=== PATIENT | female | born 1985 | race Caucasian/White ===

== ENCOUNTER 2019-04-10 09:30 | Inpatient (IN) | payer BC, OTHER ==
[~2019-04-10] VITALS: Ht 160 cm; Wt 86.2 kg
[~2019-04-10 09:30] MED LIST: CEFAZOLIN 2 GM IVPB PREMIX 50 ML IV ONE; LIDOCAINE 2%, 20 ML MDV INJ ONE; MIDAZOLAM HCL 5 MG/5 ML VIAL IVP ONE; NS IRRIG SOLN 1000 ML IR ONE
[2019-04-10] MEDS ORDERED: LR 1,000 ML IV SCH (09:56)
[2019-04-10] MEDS ORDERED: LR 1,000 ML IV ONE (09:56)
[2019-04-10] MEDS ORDERED: OXYTOCIN/0.9 % SODIUM CHLORIDE 1,000 ML IV SCH ×2 (09:56→14:25)
[2019-04-10] MEDS ORDERED: TERBUTALINE SULFATE 1 MG/ML VIAL SUBCUT ONE (10:00)
[2019-04-10] MEDS ORDERED: NALBUPHINE HCL 10 MG/ML AMP IVP PRN (10:00)
[2019-04-10 10:21] LABS: BASOPHILS # (AUTO) 0.1 K/uL (0.0-0.2); BASOPHILS % (AUTO) 0.5 % (0.0-2.0); EOSINOPHILS # (AUTO) 0.1 K/uL (0.0-0.4); EOSINOPHILS % (AUTO) 0.5 % (0.0-4.0); HEMATOCRIT 35.2 % (36-48); HEMOGLOBIN 11.7 g/dL (12.0-16.0); LYMPHOCYTES # (AUTO) 1.2 K/uL (1.0-5.5); MEAN CORPUSCULAR HEMOGLOBIN 32 pg (27-31); MEAN CORPUSCULAR HGB CONC 33 % (32-36); MEAN CORPUSCULAR VOLUME 97 fL (79.0-98.0); MONOCYTES # (AUTO) 0.8 K/uL (0.0-1.0); MONOCYTES % (AUTO) 8.2 % (1.7-9.3); NEUTROPHILS # (AUTO) 7.6 K/uL (1.8-7.7); NEUTROPHILS % (AUTO) 78.8 % (40.0-70.0); PLATELET COUNT (AUTO) 123 K/uL (130-430); RED BLOOD CELL COUNT(AUTO) 3.64 MIL/uL (4.2-6.2); RED CELL DISTRIBUTION WIDTH 14.3 % (9.0-15.0); WHITE BLOOD COUNT (AUTO) 9.7 K/uL (4.8-10.8)
[2019-04-10] MEDS ORDERED: fentaNYL CITRATE/PF 100 MCG/2 ML AMP ONE (10:58)
[2019-04-10] MEDS ORDERED: ROPIVACAINE HCL/PF 0.2% 200 ML ONE (10:59)
[2019-04-10] MEDS ORDERED: fentaNYL CITRATE/PF 100 MCG/2 ML AMP EP ONE (11:45)
[2019-04-10] MEDS ORDERED: FENT2mCg/mL-ROPIVA0.2%/NS EPID 200 ML EP SCH (11:45)
[2019-04-10] MEDS ORDERED: LR 500 ML IV ONE (11:45)
[2019-04-10] MEDS ORDERED: ePHEDrine sulfate 50 MG/ML VIAL IVP PRN (11:45)
[2019-04-10] MEDS ORDERED: ROPIVACAINE 40 MG/20 ML AMP EP ONE (13:29)
[2019-04-10] MEDS ORDERED: ePHEDrine sulfate 50 MG/ML VIAL IVP ONE (13:29)
[2019-04-10] MEDS ORDERED: OXYTOCIN 10 UNIT/ML VIAL ONE (14:08)
[2019-04-10] MEDS ORDERED: METHYLERGONOVINE MALEATE 0.2 MG/ML AMP ONE (14:09)
[2019-04-10] MEDS ORDERED: METHYLERGONOVINE MALEATE 0.2 MG/ML AMP IM ONE (14:09)
[2019-04-10] MEDS ORDERED: WITCH HAZEL LEAF 1 MED.PAD MED.PAD TP PRN (14:30)
[2019-04-10] MEDS ORDERED: SENNOSIDES/DOCUSATE SODIUM 1 TAB TABLET(SENOKOT-S) PO PRN (14:30)
[2019-04-10] MEDS ORDERED: DOCUSATE SODIUM 100 MG CAPSULE PO PRN (14:30)
[2019-04-10] MEDS ORDERED: DERMOPLAST SPRAY TP PRN (14:30)
[2019-04-10] MEDS ORDERED: IBUPROFEN 800 MG TABLET PO PRN (14:30)
[2019-04-10] MEDS ORDERED: LANOLIN 7 GM OINT. TP PRN (14:30)
[2019-04-10] MEDS: OXYCODONE/ACETAMINOPHEN 5-325 TABLET PO PRN (20:35)
[2019-04-10] MEDS ORDERED: TEMAZEPAM 15 MG CAPSULE PO PRN (21:00)
[2019-04-11] MEDS: OXYCODONE/ACETAMINOPHEN 5-325 TABLET PO PRN ×3 (02:48→17:28)
[2019-04-11 06:03] LABS: BASOPHILS % (AUTO) 0.4 % (0.0-2.0); EOSINOPHILS # (AUTO) 0.1 K/uL (0.0-0.4); EOSINOPHILS % (AUTO) 0.8 % (0.0-4.0); HEMATOCRIT 28.5 % (36-48); HEMOGLOBIN 9.7 g/dL (12.0-16.0); LYMPHOCYTES # (AUTO) 1.5 K/uL (1.0-5.5); LYMPHOCYTES % (AUTO) 13.4 % (20.5-51.5); MEAN CORPUSCULAR HEMOGLOBIN 33 pg (27-31); MEAN CORPUSCULAR HGB CONC 34 % (32-36); MEAN CORPUSCULAR VOLUME 96 fL (79.0-98.0); MONOCYTES # (AUTO) 0.9 K/uL (0.0-1.0); MONOCYTES % (AUTO) 8.2 % (1.7-9.3); NEUTROPHILS # (AUTO) 8.5 K/uL (1.8-7.7); NEUTROPHILS % (AUTO) 77.2 % (40.0-70.0); PLATELET COUNT (AUTO) 115 K/uL (130-430); RED BLOOD CELL COUNT(AUTO) 2.96 MIL/uL (4.2-6.2); RED CELL DISTRIBUTION WIDTH 14.4 % (9.0-15.0)
[2019-04-11] MEDS ORDERED: MINERAL OIL 30 ML UDC PO ONE (08:11)
[2019-04-11] MEDS ORDERED: OXYTOCIN/0.9 % SODIUM CHLORIDE 1,000 ML IV ONE (09:53)
[2019-04-11 09:55] VITALS: BP_SYST 124
[2019-04-11] MEDS ORDERED: IBUPROFEN 800 MG TABLET PO PRN (10:00)
[2019-04-11] MEDS ORDERED: LR 1,000 ML IV SCH (10:01)
[2019-04-11] MEDS ORDERED: HYDROmorphone 2 MG/ML VIAL IVP PRN ×2 (10:15)
[2019-04-11] MEDS ORDERED: HYDROmorphone 1 MG INJ. 1 MG/ML AMPUL IVP PRN (10:15)
[2019-04-11] MEDS ORDERED: MEPERIDINE HCL/PF 25 MG/ML DISP.SYRIN IVP PRN (10:15)
[2019-04-11] MEDS ORDERED: HYDROmorphone 1 MG INJ. 1 MG/ML AMPUL ONE ×2 (10:21→10:36)
[2019-04-11] MEDS ORDERED: KETOROLAC TROMETHAMINE 60 MG/2 ML VIAL IM ONE ×2 (11:30→11:36)
[2019-04-11] MEDS ORDERED: OXYCODONE/ACETAMINOPHEN 5-325 TABLET PO PRN (13:15)
[2019-04-11] MEDS ORDERED: MEPERIDINE HCL/PF 50 MG/ML AMP IVP PRN (13:15)
[2019-04-11] MEDS ORDERED: DIPH-TET-PERTUS Vaccine 0.5 ML VIAL (ADACEL) I.M. PRN (17:30)
[2019-04-11] MEDS ORDERED: TEMAZEPAM 15 MG CAPSULE PO PRN (21:00)
== END 2019-04-11 18:40 | disposition home or self-care (01) | DRG 798 ==
LOC: SPU 09:30
PROVIDERS: ADMIT Specialist; ATTEND Specialist
PROC: 10E0XZZ Delivery of Products of Conception, External Approach (ICD-10-PCS; principal; 2019-04-10)
PROC: 0UB70ZZ Excision of Bilateral Fallopian Tubes, Open Approach (ICD-10-PCS; 2019-04-11)
DX: O80 Encounter for full-term uncomplicated delivery (principal); Z37.0 Single live birth; Z3A.39 39 weeks gestation of pregnancy; Z30.2 Encounter for sterilization
CPT/HCPCS: 36415; 85025; 86592; 86886; 86900; 86901; 88302; 90715; J0690; J1170; J1885; J2001; J2210; J2250; J2590; J2795; J3010; J7120